=== PATIENT | male | born 2000 | race Caucasian/White ===

== ENCOUNTER 2022-08-24 19:43 | Emergency (ER) | payer OTHER ==
--- NOTE | 2022-08-24 20:17 | ED Physician Documentation ---
PD HPI CHEST PAIN - Stated complaint Stated Complaint: CP, SOA - Chief complaint Chief Complaint: Cardiac - History obtained from History obtained from: Patient - Additional information Additional information: 22yM, previously healthy, nonsmoker, p/w chest pain while sitting at work today. patient states he was experiencing palpitations for about 20 minutes that didn't resolve when he got up to walk around. +SOA, chest squeezing, and BL arm tingling. he felt distressed at this and googled heart attack symptoms, becoming concerned enough to call ems. upon ems arrival his symptoms abated. denies f ever, cough, leg swelling, recent travel or bedrest. perc negative. +FH LA (father) Review of Systems Constitutional: denies: Fever, Chills Nose: denies: Rhinorrhea / runny nose Throat: denies: Sore throat Cardiac: reports: Chest pain / pressure, Palpitations Respiratory: reports: Dyspnea. denies: Cough GI: denies: Abdominal Pain, Nausea PD PAST MEDICAL HISTORY - Allergies Allergies/Adverse Reactions: Allergies Allergy/AdvReac Type Severity Reaction Status Date / Time No Known Drug Allergies Allergy Verified 08/24/22 19:50 PD ED PE NORMAL - Vitals Vital signs reviewed: Yes - General General: Alert and oriented X 3, No acute distress, Well developed/nourished - HEENT HEENT: Atraumatic, PERRL, EOMI - Neck Neck: Supple, no meningeal sign - Cardiac Cardiac: RRR - Respiratory Respiratory: No respiratory distress, Clear bilaterally - Abdomen Abdomen: Non tender, Non distended - Derm Derm: Normal color, Warm and dry - Neuro Neuro: No motor deficit, No sensory deficit - Psych Psych: Normal mood, Normal affect Results - Vitals Vitals: Vital Signs - 24 hr 08/24/22 19:48 Temperature 37.3 C Heart Rate 69 Respiratory 16 Rate Blood Pressure 144/76 H O2 Saturation 100 Oxygen O2 Source Room air - EKG (time done) 1942 EKG releavant findings:: EKG personally interpreted by author of this note. Relevant findings are: Rate: Rate (enter#) (63) Rhythm: NSR [place]: LAD Intervals: Normal IA QRS: Normal Ischemia: ST elevation c/w repol PD Medical Decision Making - ED course ED course: 22yM p/w atypical chest pain, self resolving without intervention. EKG and CXR performed were noncontributory. normal vitals in ED and benign exam. PERC negative. Low risk for LA. return precautions given. plan to f/u with pcm. Departure - Departure Disposition: Home, Self Care Clinical Impression: Chest pain Condition: Good Instructions: ED Chest Pain NonCardiac Comments: You were seen in the emergency department for chest pain. Your EKG and chest x- ray uncovered no emergent cause for your condition. Please follow-up with your primary care provider and return to the emergency department if you have other concerns
[2022-08-24 20:42] VITALS: BP 110/70
--- NOTE | 2022-08-24 20:59 | XRAY Report ---
PROCEDURE: Chest 1 View X-Ray INDICATIONS: Chest Pain TECHNIQUE: One view of the chest was acquired. COMPARISON: None. FINDINGS: Surgical changes and devices: None. Lungs and pleura: Lung apices are incompletely included on the current study. The visualized lungs ar e clear. No pleural effusions or definite pneumothorax. Mediastinum: Mediastinal contours appear normal. Heart size is normal. Bones and chest wall: No suspicious bony lesions. Overlying soft tissues appear unremarkable. IMPRESSION: No definite acute cardiopulmonary disease. Reviewed by: Ted Tellez MD on 08/24/2022 8:58 PM PDT Approved by: Ted Tellez MD on 08/24/2022 8:58 PM PDT Station ID: [id number]
== END 2022-08-24 20:38 | disposition home or self-care (01) ==
LOC: ED 19:43
DX: R07.9 Chest pain, unspecified (principal)
CPT/HCPCS: 36415; 80053; 83690; 84484; 85025; 93005; 99283; 99284